=== PATIENT | male | born 1960 | race Caucasian/White ===

== ENCOUNTER 2017-12-27 06:05 | Day surgery (SDC) | payer OTHER, SELFPAY ==
[2017-12-27] VITALS (7 sets, daily range): BP systolic 114–143; BP diastolic 77–92; PULSE 47–58; RESP 16; TEMP 36; O2SAT 96–98; BMI 26.7
--- NOTE | 2017-12-27 07:19 | PCM.HP.STD ---
Problem List (1) Family history of colon cancer in mother Status: Acute History of Present Illness Date of Admission: 12/27/17 The patient is a 57 year old M who presents for a colonoscopy. Patient has a family history of colon cancer in his mother. His last colonoscopy was 6 years ago. Past Medical History Allergies No Known Allergies Allergy (Verified 12/21/17 14:38) Home Medications: Ambulatory Orders Medication Instructions Recorded NK [NK] 12/21/17 Smoking Status: Never smoker - *Family History Maternal History Items: Cancer - Patient had colon cancer Review of Systems HEENT: Denies: Dysphasia, Ear Pain, Eye Pain, Head Aches, Hearing Changes, Sore Throat Cardiovascular: Denies: Chest Pain, Chest Pressure, Chest Tightness, Palpitations Respiratory: Denies: Cough, Hemoptysis, Shortness of breath at rest, Shortness of breath upon exertion, Wheezing Gastrointestinal: Denies: Abdominal Pain, Constipation, Diarrhea, Hematemesis, Nausea, Melena, Vomiting VTE Information - Inpt Only VTE Present on Admission: No VTE Mechan Device Prophylaxis: None VTE Pharm Prophylaxis ordered?: No Reason prophylaxis not ordered:: Treatment Not Indicated Patient Problems: Active and Suspected Problems Family history of colon cancer in mother (Acute) - Physical Exam Neck: Supple, No JVD Lungs: Clear to auscultation Cardiovascular: Regular rate, Regular Rhythm, No murmurs Abdomen: Bowel Sounds Present, Soft, Non Tender, Non-Distended Vital Signs Pulse Resp BP Pulse Ox 58 L 16 143/83 H 98 12/27/17 06:35 12/27/17 06:35 12/27/17 06:35 12/27/17 06:35 Oxygen Delivery Method Room Air Weight: 173 lb 8.061 oz Body Mass Index (BMI) 26.7 Assessment/Plan All Active Problems Family history of colon cancer in mother (Acute) My plan will be to perform a colonoscopy risk benefits have been reviewed and the patient agrees to proceed.
--- NOTE | 2017-12-27 07:22 | PCM.OPRPT ---
Problem List (1) Family history of colon cancer in mother Status: Acute Report of Operation Date of Procedure: 12/27/17 Pre-Operative Diagnosis: Z80.0 family history of colon cancer Post-Operative Diagnosis: Same Surgery/Procedure Performed:: 01787 colonoscopy Type of Anesthesia:: MAC Anesthesiologist: Xiang Harding Description of Procedure: Patient was brought into the endoscopy suite. Placed in the left lateral decubitus position. Given graded anesthesia. Colonoscope was inserted into the rectum. The scope was directed through the sigmoid colon, descending colon, transverse colon, ascending colon, to the cecum without difficulty. Operative findings: 1. Cecum: Normal appearance no mass lesions normal ileocecal valve. 2. Ascending colon: Normal appearance no mass lesions. 3. Transverse colon: Normal appearance no mass lesions. 4. Descending colon: Normal appearance no mass lesions. 5. Sigmoid colon: Normal appearance no mass lesions scattered small diverticuli identified. 6. Rectum: Normal appearance no mass lesions minimal internal hemorrhoidal disease identified. No masses in the anus. Scope was withdrawn digital rectal exam was performed showing a smooth prostate with no nodules. Patient will need another colonoscopy in 5 years. - Admit VTE Documentation VTE Present on Admission: No VTE Mechan Device Prophylaxis: None VTE Pharm Prophylaxis ordered?: No Reason prophylaxis not ordered:: Treatment Not Indicated
--- NOTE | 2017-12-27 07:25 | OP.PCM_ITS ---
Problem List (1) Family history of colon cancer in mother Status: Acute Report of Operation Date of Procedure: 12/27/17 Pre-Operative Diagnosis: Z80.0 family history of colon cancer Post-Operative Diagnosis: Same Surgery/Procedure Performed:: 18221 colonoscopy Type of Anesthesia:: MAC Anesthesiologist: Xiang Harding Description of Procedure: Patient was brought into the endoscopy suite. Placed in the left lateral decubitus position. Given graded anesthesia. Colonoscope was inserted into the rectum. The scope was directed through the sigmoid colon, descending colon , transverse colon, ascending colon, to the cecum without difficulty. Operative findings: 1. Cecum: Normal appearance no mass lesions normal ileocecal valve. 2. Ascending colon: Normal appearance no mass lesions. 3. Transverse colon: Normal appearance no mass lesions. 4. Descending colon: Normal appearance no mass lesions. 5. Sigmoid colon: Normal appearance no mass lesions scattered small diverticuli identified. 6. Rectum: Normal appearance no mass lesions minimal internal hemorrhoidal disease identified. No masses in the anus. Scope was withdrawn digital rectal exam was performed showing a smooth prostate with no nodules. Patient will need another colonoscopy in 5 years. - Admit VTE Documentation VTE Present on Admission: No VTE Mechan Device Prophylaxis: None VTE Pharm Prophylaxis ordered?: No Reason prophylaxis not ordered:: Treatment Not Indicated
== END 2017-12-27 08:00 | disposition home or self-care (01) ==
LOC: EN 06:10 → AC 06:11
PROVIDERS: Family Provider Family Medicine; PCP Family Medicine; Visit Provider Surgery
PROC: 0DJD8ZZ Inspection of Lower Intestinal Tract, Via Natural or Artificial Opening Endoscopic (ICD-10-PCS; CPT 45378; principal; 2017-12-27 06:55)
DX: K57.30 Diverticulosis of large intestine without perforation or abscess without bleeding (principal); K64.8 Other hemorrhoids; Z80.0 Family history of malignant neoplasm of digestive organs
CPT/HCPCS: 45378; J7120